=== PATIENT | female | born 1965 | race Caucasian/White ===

== ENCOUNTER 2022-10-17 08:04 | Emergency (ER) | payer OTHER, MEDICAID ==
[~2022-10-17] VITALS: Ht 157.5 cm; Wt 63.5 kg
--- NOTE | 2022-10-17 08:41 | NUR ---
57YO F BIB [facility], C/O LT ELBOW BRUISE AND SWELLING NOTED THIS AM, PT HAS HX OF FALLS AND BRUISES, NEW BOARD AND CARE X 2MTHS. PT NON VERBAL. SAFETY MAINTAINED. HX: SEIZURES, AUTISM NKA
--- NOTE | 2022-10-17 08:43 | NUR ---
PT AMBULATED TO BED 8 W/ESTIMATOR JEWELRY
--- NOTE | 2022-10-17 09:05 | NUR ---
SIN AT BEDSIDE FOR EVALUATION
[2022-10-17] MEDS ORDERED: LORazepam 2 MG/ML VIAL IM ONE (09:10)
[2022-10-17] MEDS ORDERED: HALOPERIDOL IM 5 MG/ML VIAL IM ONE (09:10)
--- NOTE | 2022-10-17 10:08 | NUR ---
xray at bedside
[2022-10-17] MEDS ORDERED: ACET-2619 PO ×2 (11:23→11:25)
[2022-10-17] MEDS ORDERED: IBUP-2213 PO ×2 (11:23→11:25)
--- NOTE | 2022-10-17 11:33 | NUR ---
The patient's care was reviewed and supervised by [facility] ED, RN.
== END 2022-10-17 11:36 | disposition home or self-care (01) ==
LOC: MED 08:04
DX: S50.02XA Contusion of left elbow, initial encounter (principal); S60.221A Contusion of right hand, initial encounter; S60.222A Contusion of left hand, initial encounter; F84.0 Autistic disorder; F32.9 Major depressive disorder, single episode, unspecified; G40.909 Epilepsy, unspecified, not intractable, without status epilepticus; J45.909 Unspecified asthma, uncomplicated; F79 Unspecified intellectual disabilities; Z79.899 Other long term (current) drug therapy; X58.XXXA Exposure to other specified factors, initial encounter; Y93.89 Activity, other specified; Y92.89 Other specified places as the place of occurrence of the external cause; Y99.8 Other external cause status
CPT/HCPCS: 73080; 96372; 99284; J1630; J2060

== ENCOUNTER 2022-10-26 14:53 | Inpatient (IN) | payer OTHER, MEDICAID ==
[~2022-10-26] VITALS: Ht 157.5 cm; Wt 74.8 kg
[~2022-10-26 14:53] MED LIST: ACET-2619 PO; IBUP-2213 PO
[2022-10-26 14:55] VITALS: BP 140/80
[2022-10-26] MEDS ORDERED: NACL 0.9% 1,000 ML IV ONE (15:10)
[2022-10-26 16:02] LABS: BASOPHILS # (AUTO) 0.1 K/uL (0.00-0.22); BASOPHILS % (AUTO) 0.6 % (0.0-2.0); EOSINOPHILS # (AUTO) 0.1 K/uL (0-0.4); EOSINOPHILS % (AUTO) 0.7 % (0.0-4.0); HEMATOCRIT 36.7 % (36-48); HEMOGLOBIN 12.1 g/dL (12.0-16.0); LYMPHOCYTES # (AUTO) 2.6 K/uL (2.5-16.5); LYMPHOCYTES % (AUTO) 22.2 % (20.5-51.1); MEAN CORPUSCULAR HEMOGLOBIN 31 pg (27-31); MEAN CORPUSCULAR HGB CONC 33 g/dL (33-37); MEAN CORPUSCULAR VOLUME 94.1 fL (80-94); MONOCYTES # (AUTO) 1.5 K/uL (0.8-1.0); MONOCYTES % (AUTO) 12.7 % (1.7-9.3); NEUTROPHILS # (AUTO) 7.5 K/uL (1.8-7.7); NEUTROPHILS % (AUTO) 63.8 % (42.2-75.2); PLATELET COUNT (AUTO) 271 K/uL (140-450); WHITE BLOOD COUNT (AUTO) 11.7 K/uL (4.8-10.8)
--- NOTE | 2022-10-26 16:14 | NUR ---
BIBA FROM [facility] FOR GENERALIZED WEAKNESS.
[2022-10-26 16:20] LABS: ANION GAP 11.2 (8-16); CREATININE 0.6 mg/dL (0.6-1.3); POTASSIUM 4.2 mmol/L (3.5-5.1); TOTAL BILIRUBIN 0.3 mg/dL (0.0-1.0)
[2022-10-26 19:03] LABS: APPEARANCE,URINE CLEAR (CLEAR); BILIRUBIN,URINE NEGATIVE (NEGATIVE); BLOOD, URINE NEGATIVE (NEGATIVE); COLOR,URINE YELLOW (YELLOW); LEUKOCYTE ESTERASE ,URINE TRACE (NEGATIVE); NITRITE, URINE POSITIVE (NEGATIVE); UGLUCOSE NEGATIVE (NEGATIVE)
[2022-10-26 19:12] LABS: RBC,URINE 0-5 /HPF (0-5); URINE AMORPHOUS URATE 3+ /HPF (None Seen)
--- NOTE | 2022-10-26 19:35 | NUR ---
Patient report received from Morgan UMAÑA. Patient comfortable and safe in bed. Patient being monitored at this time, connected to monitor. VS stable at this time.
[2022-10-26] MEDS ORDERED: cefTRIAXone 1,000 MG VIAL ONE (19:50)
[2022-10-26] MEDS ORDERED: DIVA125E1 (21:30)
[2022-10-26] MEDS ORDERED: FURO-572 PO (21:30)
[2022-10-26] MEDS ORDERED: [UNRECOGNIZED DRUG - CODE] PO (21:30)
[2022-10-26] MEDS ORDERED: TRAZ-343 PO (21:30)
[2022-10-26] MEDS ORDERED: SIMV-371 PO (21:30)
[2022-10-26] MEDS ORDERED: POTA8CER PO (21:30)
[2022-10-26] MEDS ORDERED: MAGN400T7 PO (21:30)
[2022-10-26] MEDS ORDERED: LEVE750T25 PO (21:30)
[2022-10-26] MEDS ORDERED: CHOL500040 PO (21:30)
[2022-10-26] MEDS ORDERED: FOS70 PO (21:30)
[2022-10-26] MEDS ORDERED: BUSP15TA4 PO (21:30)
[2022-10-26] MEDS ORDERED: FERR325E14 PO (21:30)
[2022-10-26] MEDS ORDERED: [UNRECOGNIZED DRUG - CODE] PO (21:30)
[2022-10-26] MEDS ORDERED: CALC-575 PO (21:30)
--- NOTE | 2022-10-26 22:11 | NUR ---
Patient will be admitted to care of Dr. Griffin. Admited to Telemetry. Will go to room 110A. Belongings list completed. Report to Gisell UMAÑA.
--- NOTE | 2022-10-26 22:15 | NUR ---
ADMITTED PATIENT TO [facility]ST UNIT VIA GURNEY FROM ER AWAKE NON VERBAL ON ROOM AIR. NO S/S OF RESPIRATORY DISTRESS. TRANSFERRED TO BED SAFELY. ALL SAFETY PRECAUTIONS ARE IN PLACE. CALL LIGHT WITHIN REACH. NASAL SWAB DONE FOR MRSA SCREENING. IV SITE TO RIGHT THUMB.
[2022-10-27] MEDS ORDERED: LORazepam 2 MG/ML VIAL IVP SCH (01:55)
[2022-10-27] MEDS ORDERED: LORazepam 2 MG/ML VIAL ONE (01:57)
--- NOTE | 2022-10-27 02:00 | NUR ---
PATIENT PULLED OUT IV. STARTED A NEW IV TO RIGHT FOREARM WITH GOOD BLOOD RETURN. TOLERATED WELL.
[2022-10-27 04:00] VITALS: BP 122/67
[2022-10-27 07:04] LABS: BASOPHILS % (AUTO) 0.3 % (0.0-2.0); EOSINOPHILS # (AUTO) 0.1 K/uL (0-0.4); EOSINOPHILS % (AUTO) 1.6 % (0.0-4.0); HEMATOCRIT 32.8 % (36-48); HEMOGLOBIN 10.9 g/dL (12.0-16.0); LYMPHOCYTES % (AUTO) 27.6 % (20.5-51.1); MEAN CORPUSCULAR HEMOGLOBIN 31 pg (27-31); MEAN CORPUSCULAR HGB CONC 33 g/dL (33-37); MEAN CORPUSCULAR VOLUME 93.9 fL (80-94); MONOCYTES # (AUTO) 1.1 K/uL (0.8-1.0); NEUTROPHILS % (AUTO) 55.5 % (42.2-75.2); PLATELET COUNT (AUTO) 235 K/uL (140-450); RED CELL DISTRIBUTION WIDTH 14.5 % (11.6-13.7); WHITE BLOOD COUNT (AUTO) 7.3 K/uL (4.8-10.8)
--- NOTE | 2022-10-27 07:10 | NUR ---
RECEIVED REPORT FROM NIGHT NURSE DAHIANA FOR CONTINUITY OF CARE. ALERT WITH CONFUSION. RESP. EVEN AND UNLABORED. IV SITE INTACT. ON SALINE LOCK. NOT IN ANY DISTRESS NOTED. CALL LIGHT KEPT WITHIN REACH. PT WILL MONITOR CLOSELY.
[2022-10-27 07:11] LABS: ANION GAP 11.1 (8-16); CARBON DIOXIDE 26.7 mmol/L (21-32); CREATININE 0.5 mg/dL (0.6-1.3); POTASSIUM 3.8 mmol/L (3.5-5.1)
--- NOTE | 2022-10-27 07:14 | NUR ---
GAVE BEDSIDE REPORT TO AM NURSE SIOBHAN FOR CONTINUITY OF CARE.
[2022-10-27] MEDS ORDERED: ALENDRONATE SODIUM 70 MG TAB PO SCH (07:20)
[2022-10-27] MEDS ORDERED: OLANZapine 5 MG ODT PO ONE (07:20)
[2022-10-27] MEDS ORDERED: MAG SULF 2000 MG/WATER PREMIX 50 ML IV PRN (07:30)
[2022-10-27] MEDS ORDERED: HYDROcodone/APAP 7.5/325 MG 1 TAB PO PRN (07:30)
[2022-10-27] MEDS ORDERED: ACETAMINOPHEN 325 MG TAB PO PRN (07:30)
[2022-10-27] MEDS ORDERED: POTASSIUM CHLORIDE 10 MEQ TABER PO PRN (07:30)
[2022-10-27] MEDS ORDERED: ONDANSETRON 4 MG/2 ML VIAL IVP PRN (07:30)
[2022-10-27 08:00] VITALS: BP 145/96
--- NOTE | 2022-10-27 08:05 | NUR ---
ATTEMPTED PERFORMING EKG ON PATIENT, PATIENT NOT COMPLIANT. RN NOTIFIED.
[2022-10-27 08:16] LABS: PROTHROMBIN TIME 10.5 secs (10.8-13.4)
[2022-10-27] MEDS: NACL 0.9% 1,000 ML IV SCH (08:41)
--- NOTE | 2022-10-27 08:49 | NUR ---
PATIENT HAS BEEN SCREENED AND CATEGORIZED LOW NUTRITION RISK. PATIENT WILL BE SEEN WITHIN 7 DAYS OF ADMISSION. 11/02/[address]
[2022-10-27] MEDS ORDERED: NON-FORMULARY ITEM (Levetiracetam* (Keppra Xr*) 1 TAB) PO SCH (09:00)
[2022-10-27] MEDS ORDERED: DOCUSATE SODIUM 250 MG GELCAP PO SCH (09:00)
[2022-10-27 09:33] LABS: AMYLASE 28 U/L (25-115); FREE T4 (FREE THYROXINE) 0.95 ng/dL (0.76-1.46); HDL CHOLESTEROL 65 mg/dL (40-60); LDL (CALC) 58 mg/dL (60-100); LIPASE 29 U/L (73-393); MAGNESIUM 1.9 mg/dL (1.8-2.4); PHOSPHORUS 3.8 mg/dL (2.5-4.9); THYROID STIMULATING HORMONE 4.06 uIU/mL (0.34-3.74); TRIGLYCERIDES 43 mg/dL (30-150)
[2022-10-27] MEDS: CALCIUM CARBONATE 500 MG TAB PO SCH (09:44)
[2022-10-27] MEDS: VITAMIN D 400 IU TAB PO SCH ×2 (09:47→21:03)
[2022-10-27] MEDS: MAGNESIUM OXIDE 400 MG TAB PO SCH (09:48)
[2022-10-27] MEDS: FERROUS SULFATE 325 MG TABEC PO SCH (09:48)
[2022-10-27] MEDS: FUROSEMIDE 20 MG TAB PO SCH (09:48)
[2022-10-27] MEDS: DOCUSATE SODIUM 100 MG GELCAP PO SCH ×2 (09:49→21:21)
--- NOTE | 2022-10-27 09:49 | NUR ---
SCHEDULED PO MEDICATIONS GIVEN. TOLERATED WELL.
[2022-10-27] MEDS: busPIRone 5 MG TAB PO SCH (09:57)
[2022-10-27] MEDS: DIVALPROEX SPRINKLES 125 MG CAPDR PO SCH ×4 (09:57→21:05)
[2022-10-27] MEDS: PANTOPRAZOLE 40 MG INJ VIAL IVP SCH (10:22)
--- NOTE | 2022-10-27 10:22 | NUR ---
PROTONIX IVP WAS GIVEN BY PARAMJIT UMAÑA. TOLERATED WELL.
[2022-10-27 12:00] VITALS: BP 102/81
[2022-10-27] MEDS: KEPPRA 750 MG PO SCH ×2 (14:30→21:20)
[2022-10-27 16:00] VITALS: BP 130/86
--- NOTE | 2022-10-27 18:17 | NUR ---
MADE CLARIFICATION ORDERS TO DR. GARCIA, REGARDING HOME MEDICATIONS: OLANZAPINE 15 MG PO BID, DIVALPROEX 125 MG CAPSULES TAKE 10 CAPS (1250MG). PER DR. GARCIA CONTINUE HOME MEDICATIONS. ORDER NOTED AND CARRIED OUT. CALLED PHARMACY SPOKE TO MARIANNA AND MADE AWARE.
--- NOTE | 2022-10-27 19:10 | NUR ---
REPORT GIVEN TO NIGHT NURSE DAHIANA FOR CONTINUITY OF CARE. REMAINS STABLE.
[2022-10-27 20:00] VITALS: BP 133/92
[2022-10-27] MEDS: SIMVASTATIN 10 MG TAB PO SCH (21:03)
[2022-10-27] MEDS: OLANZapine 5 MG ODT PO SCH (21:03)
--- NOTE | 2022-10-27 21:03 | NUR ---
ALL 2100 SCHEDULED MEDICATIONS ADMINISTERED. TOLERATED WELL. PATIENT AWAKE NO SOB NOTED. AGITATED. IVF INFUSING WELL. SAFETY MEASURES ARE IN PLACE. CALL LIGHT IN REACH.
[2022-10-27] MEDS: traZODone 50 MG TAB PO SCH (21:20)
[2022-10-28] VITALS: BP 124/64
[2022-10-28] MEDS: LORazepam 2 MG/ML VIAL IVP PRN ×2 (00:41→23:03)
[2022-10-28] MEDS: NACL 0.9% 1,000 ML IV SCH ×2 (03:30→09:35)
[2022-10-28 04:00] VITALS: BP 128/90
--- NOTE | 2022-10-28 07:15 | NUR ---
RECEIVED REPORT FROM NIGHT NURSE DAHIANA FOR CONTINUITY OF CARE. ALERT WITH CONFUSION. SKIN DRY AND WARM TO TOUCH. IVF INFUSING WELL. NOT IN ANY DISTRESS NOTED. CALL LIGHT KEPT WITHIN REACH. PT WILL MONITOR CLOSELY.
[2022-10-28 07:19] LABS: MAGNESIUM 2.2 mg/dL (1.8-2.4); PHOSPHORUS 4.1 mg/dL (2.5-4.9)
--- NOTE | 2022-10-28 07:21 | NUR ---
ENDORSED PATIENT TO DAY SHIFT NURSE FOR CONTINUITY OF CARE.
[2022-10-28 07:30] LABS: BASOPHILS % (AUTO) 0.7 % (0.0-2.0); EOSINOPHILS # (AUTO) 0.1 K/uL (0-0.4); EOSINOPHILS % (AUTO) 2.2 % (0.0-4.0); HEMOGLOBIN 11.3 g/dL (12.0-16.0); LYMPHOCYTES # (AUTO) 2.2 K/uL (2.5-16.5); LYMPHOCYTES % (AUTO) 38.7 % (20.5-51.1); MEAN CORPUSCULAR HEMOGLOBIN 31 pg (27-31); MEAN CORPUSCULAR HGB CONC 33 g/dL (33-37); MEAN CORPUSCULAR VOLUME 93.4 fL (80-94); MONOCYTES % (AUTO) 17.2 % (1.7-9.3); NEUTROPHILS # (AUTO) 2.3 K/uL (1.8-7.7); NEUTROPHILS % (AUTO) 41.2 % (42.2-75.2); PLATELET COUNT (AUTO) 247 K/uL (140-450); RED BLOOD CELL COUNT(AUTO) 3.64 MIL/uL (4.20-5.40); RED CELL DISTRIBUTION WIDTH 14.6 % (11.6-13.7); WHITE BLOOD COUNT (AUTO) 5.7 K/uL (4.8-10.8)
[2022-10-28 07:31] LABS: CARBON DIOXIDE 27.2 mmol/L (21-32); CREATININE 0.5 mg/dL (0.6-1.3); POTASSIUM 4.2 mmol/L (3.5-5.1)
[2022-10-28 08:00] VITALS: BP 141/79
[2022-10-28] MEDS: MAGNESIUM OXIDE 400 MG TAB PO SCH (08:57)
[2022-10-28] MEDS: KEPPRA 750 MG PO SCH ×2 (08:57→21:30)
[2022-10-28] MEDS: PANTOPRAZOLE 40 MG INJ VIAL IVP SCH (09:00)
[2022-10-28] MEDS: busPIRone 5 MG TAB PO SCH (09:02)
[2022-10-28] MEDS: DOCUSATE SODIUM 100 MG GELCAP PO SCH ×2 (09:02→21:27)
--- NOTE | 2022-10-28 09:02 | NUR ---
SCHEDULED MEDICATIONS GIVEN. TOLERATED WELL.
[2022-10-28] MEDS: VITAMIN D 400 IU TAB PO SCH ×2 (09:03→21:26)
[2022-10-28] MEDS: CALCIUM CARBONATE 500 MG TAB PO SCH (09:03)
[2022-10-28] MEDS: OLANZapine 5 MG ODT PO SCH ×2 (09:04→21:26)
[2022-10-28] MEDS: FUROSEMIDE 20 MG TAB PO SCH (09:04)
[2022-10-28] MEDS: FERROUS SULFATE 325 MG TABEC PO SCH (09:04)
[2022-10-28] MEDS: DIVALPROEX SPRINKLES 125 MG CAPDR PO SCH ×2 (09:28→21:26)
--- NOTE | 2022-10-28 10:14 | NUR ---
PROTONIX IVP WAS GIVEN BY TRINITY UMAÑA. TOLERATED WELL.
--- NOTE | 2022-10-28 10:32 | NUR ---
PRN NORCO WAS GIVEN FOR PAIN MANAGEMENT. TOLERATED WELL.
[2022-10-28 12:00] VITALS: BP 142/62
--- NOTE | 2022-10-28 13:19 | NUR ---
PRN TYLENOL WAS GIVEN FOR HEADACHE. TOLERATED WELL.
--- NOTE | 2022-10-28 14:50 | NUR ---
DC [age] YRS OLD FEMALE PATIENT WAS ADMITTED FROM [facility]. PATIENT HAS A HX OF INTELLECTUAL DISABILITY , ASTHMA, AND DEPRESSION. CXR NORMAL , HEAD CT NEGATIVE. RAPID COVID TEST NEGATIVE. ADMINISTERED IVF, IV ABX ROCEPHIN AND CONTINUED HOME MEDS. DC PLAN TO RETURN TO [facility] WHEN STABLE. CM TO FOLLOW
--- NOTE | 2022-10-28 19:05 | NUR ---
BEDSIDE REPORT GIVEN TO NIGHT NURSE DAHIANA FOR CONTINUITY OF CARE. REMAINS STABLE.
--- NOTE | 2022-10-28 19:10 | NUR ---
RECEIVED PATIENT RESTING ON ROOM AIR IN NO ACUTE DISTRESS. IVF RUNNING WELL. BED WHEELS LOCKED IN LOW POSITION. CALL LIGHT IN REACH.
[2022-10-28] MEDS ORDERED: DIVALPROEX SPRINKLES 125 MG CAPDR ONE ×2 (21:10→21:21)
[2022-10-28] MEDS: traZODone 50 MG TAB PO SCH (21:27)
[2022-10-28] MEDS: SIMVASTATIN 10 MG TAB PO SCH (21:29)
--- NOTE | 2022-10-28 23:03 | NUR ---
PATIENT VERY AGITATED, SCREAMING,PULLING OUT IV AND TRYING TO GET OUT OF BED, MEDICATED ORDERED. PULLED UP AND MADE COMFORTABLE IN BED.
--- NOTE | 2022-10-29 00:36 | NUR ---
PATIENT CLEANED AND MADE COMFORTABLE IN BED. CURRENTLY CALM AND RESTING IN BED.
--- NOTE | 2022-10-29 00:40 | NUR ---
PATIENT PULLED OUT IV. STARTED A NEW IV TO LEFT FOREARM WITH GOOD RETURN OF BLOOD.
[2022-10-29 04:00] VITALS: BP 138/70
[2022-10-29] MEDS: NACL 0.9% 1,000 ML IV SCH (06:11)
[2022-10-29 06:52] LABS: ANION GAP 10.7 (8-16); CARBON DIOXIDE 27.5 mmol/L (21-32); CREATININE 0.5 mg/dL (0.6-1.3); MAGNESIUM 2.2 mg/dL (1.8-2.4); PHOSPHORUS 4.4 mg/dL (2.5-4.9); POTASSIUM 4.2 mmol/L (3.5-5.1)
[2022-10-29 06:54] LABS: BASOPHILS % (AUTO) 0.8 % (0.0-2.0); EOSINOPHILS # (AUTO) 0.2 K/uL (0-0.4); EOSINOPHILS % (AUTO) 4.2 % (0.0-4.0); HEMATOCRIT 32.2 % (36-48); LYMPHOCYTES # (AUTO) 2.5 K/uL (2.5-16.5); LYMPHOCYTES % (AUTO) 44.3 % (20.5-51.1); MEAN CORPUSCULAR HEMOGLOBIN 32 pg (27-31); MEAN CORPUSCULAR HGB CONC 34 g/dL (33-37); MEAN CORPUSCULAR VOLUME 92.5 fL (80-94); MONOCYTES # (AUTO) 0.8 K/uL (0.8-1.0); MONOCYTES % (AUTO) 15.2 % (1.7-9.3); NEUTROPHILS % (AUTO) 35.5 % (42.2-75.2); PLATELET COUNT (AUTO) 237 K/uL (140-450); RED BLOOD CELL COUNT(AUTO) 3.48 MIL/uL (4.20-5.40); RED CELL DISTRIBUTION WIDTH 14.4 % (11.6-13.7); WHITE BLOOD COUNT (AUTO) 5.6 K/uL (4.8-10.8)
--- NOTE | 2022-10-29 07:10 | NUR ---
RECEIVED REPORT FROM NIGHT NURSE DAHIANA FOR CONTINUITY OF CARE. ALERT WITH CONFUSION. RESP. EVEN AND UNLABORED. IV SITE INTACT. IVF INFUSING WELL. NOT IN ANY DISTRESS NOTED. CALL LIGHT KEPT WITHIN REACH. PT WILL MONITOR CLOSELY.
[2022-10-29 08:00] VITALS: BP 153/89
--- NOTE | 2022-10-29 08:00 | NUR ---
Patient's Plan of Care was discussed and reviewed with BOB[employer] CLEANER HAND: CHANDAN
[2022-10-29] MEDS: PANTOPRAZOLE 40 MG INJ VIAL IVP SCH (09:00)
[2022-10-29] MEDS: MAGNESIUM OXIDE 400 MG TAB PO SCH (09:40)
[2022-10-29] MEDS: FUROSEMIDE 20 MG TAB PO SCH (09:40)
[2022-10-29] MEDS: KEPPRA 750 MG PO SCH (09:40)
[2022-10-29] MEDS: OLANZapine 5 MG ODT PO SCH (09:40)
[2022-10-29] MEDS: VITAMIN D 400 IU TAB PO SCH (09:41)
[2022-10-29] MEDS: CALCIUM CARBONATE 500 MG TAB PO SCH (09:41)
[2022-10-29] MEDS: FERROUS SULFATE 325 MG TABEC PO SCH (09:41)
[2022-10-29] MEDS: DOCUSATE SODIUM 100 MG GELCAP PO SCH (09:41)
[2022-10-29] MEDS: busPIRone 5 MG TAB PO SCH (09:41)
--- NOTE | 2022-10-29 09:41 | NUR ---
SCHEDULED MEDICATIONS GIVEN. TOLERATED WELL.
[2022-10-29] MEDS: DIVALPROEX SPRINKLES 125 MG CAPDR PO SCH (09:55)
[2022-10-29] MEDS ORDERED: CEPH250C16 PO (10:21)
--- NOTE | 2022-10-29 10:22 | NUR ---
SEEN BY DR. GONZALEZ.
--- NOTE | 2022-10-29 11:47 | NUR ---
PROTONIX IVP WAS GIVEN BY ROHITH UMAÑA. TOLERATED WELL.
--- NOTE | 2022-10-29 13:35 | NUR ---
PT LEFT. DISCHARGE BACK TO [facility]. TRANSPORTED BY PRIVATE VEHICLE. ACCOMPANIED BY MAHNAZ PER WHEELCHAIR. ALERT AND ORIENTED WITH CONFUSION. RESP. EVEN AND UNLABORED. SKIN INTACT. ID BAND AND ID REMOVED. DISCHARGED PAPERWORK DISCUSS AND SIGNED BY MAHNAZ. NO C/O PAIN OR DISCOMFORT. REMAINS STABLE.
== END 2022-10-29 13:32 | disposition home or self-care (01) | DRG 689 ==
LOC: MED 14:53 → MTU 20:13
DX: N39.0 Urinary tract infection, site not specified (principal); G93.41 Metabolic encephalopathy; E44.0 Moderate protein-calorie malnutrition; F84.0 Autistic disorder; G40.909 Epilepsy, unspecified, not intractable, without status epilepticus; K59.00 Constipation, unspecified; D50.9 Iron deficiency anemia, unspecified; Z20.822 Contact with and (suspected) exposure to COVID-19; E78.5 Hyperlipidemia, unspecified; G47.00 Insomnia, unspecified; F39 Unspecified mood [affective] disorder; F79 Unspecified intellectual disabilities; J45.909 Unspecified asthma, uncomplicated; Z68.30 Body mass index [BMI] 30.0-30.9, adult; F32.A Depression, unspecified; I50.9 Heart failure, unspecified
CPT/HCPCS: 36415; 70450; 71045; 80048; 80053; 81001; 82140; 82150; 83036; 83690; 83735; 83880; 84100; 84439; 84443; 84484; 85025; 85610; 85730; 87081; 87086; 96361; 96365; 99285; C9113; J0696; J1644; J2060; J7060; Q0092

== ENCOUNTER 2023-01-27 04:35 | Emergency (ER) | payer OTHER, MEDICAID ==
[~2023-01-27] VITALS: Ht 157.5 cm; Wt 63.5 kg
[~2023-01-27 04:35] MED LIST changes: +BUSP15TA4 PO; +CALC-575 PO; +CEPH250C16 PO; +CHOL500040 PO; +DIVA125E1; +FERR325E14 PO; +FOS70 PO; +FURO-572 PO; +LEVE750T25 PO; +MAGN400T7 PO; +POTA8CER PO; +SIMV-371 PO; +TRAZ-343 PO; +[UNRECOGNIZED DRUG - CODE] PO; +[UNRECOGNIZED DRUG - CODE] PO
[2023-01-27 04:50] VITALS: BP 150/89; PULSE 129; RESP 20; TEMP 97.3; O2SAT 98
[2023-01-27] MEDS ORDERED: LORazepam 2 MG/ML VIAL IM/IVP STA (05:09)
[2023-01-27] MEDS ORDERED: HALOPERIDOL IM 5 MG/ML VIAL IM ONE ×2 (05:10→08:05)
[2023-01-27] MEDS ORDERED: ZIPRASIDONE MESYLATE 20 MG/ML VIAL IM ONE (06:25)
[2023-01-27] MEDS ORDERED: OLANZapine 10 MG VIAL IM ONE (06:40)
[2023-01-27] MEDS ORDERED: MIDAZOLAM 2 MG/2 ML VIAL IM ONE (08:05)
[2023-01-27] MEDS ORDERED: LIDOCAINE/EPI MPF 1%1:200000 30 ML VIAL INJ ONE (09:00)
[2023-01-27] MEDS ORDERED: LIDOCAINE/EPI 2% 1:100000 20 ML VIAL INJ ONE (09:00)
[2023-01-27] MEDS ORDERED: BACITRACIN OINT 500 UNITS/GM PKT TP ONE (09:45)
[2023-01-27 10:36] VITALS: PULSE 129
[2023-01-27 10:37] VITALS: RESP 14; TEMP 97.1; O2SAT 100
== END 2023-01-27 10:40 | disposition home or self-care (01) ==
LOC: MED 04:35
DX: S01.81XA Laceration without foreign body of other part of head, initial encounter (principal); J45.909 Unspecified asthma, uncomplicated; W01.198A Fall on same level from slipping, tripping and stumbling with subsequent striking against other object, initial encounter; Y93.89 Activity, other specified; Y92.89 Other specified places as the place of occurrence of the external cause; Y99.8 Other external cause status
CPT/HCPCS: 12014; 70450; 70486; 72125; 90471; 90715; 96372; 99285; J1630; J2001; J2060; J2250; J3490; 12013

== ENCOUNTER 2023-02-03 10:32 | Emergency (ER) | payer OTHER, MEDICAID ==
[~2023-02-03] VITALS: Ht 154.9 cm; Wt 65.8 kg
[2023-02-03 10:51] VITALS: BP 165/109; PULSE 115; RESP 20; TEMP 97.8; O2SAT 95
[2023-02-03] MEDS ORDERED: BACITRACIN OINT 500 UNITS/GM PKT TP ONE ×2 (12:40→12:41)
[2023-02-03] MEDS ORDERED: BACI-418 TP (12:41)
[2023-02-03 12:52] VITALS: BP 165/109; PULSE 115; RESP 20; TEMP 97.8; O2SAT 95
== END 2023-02-03 12:52 | disposition home or self-care (01) ==
LOC: MED 10:32
DX: S01.111D Laceration without foreign body of right eyelid and periocular area, subsequent encounter (principal); J45.909 Unspecified asthma, uncomplicated; Z48.02 Encounter for removal of sutures; Z79.899 Other long term (current) drug therapy; X58.XXXD Exposure to other specified factors, subsequent encounter
CPT/HCPCS: 99282

== ENCOUNTER 2023-02-12 13:03 | Inpatient (IN) | payer OTHER, MEDICAID ==
[~2023-02-12] VITALS: Ht 162.6 cm; Wt 81.6 kg
[2023-02-12] MEDS: DEXT 5% / NACL 0.9% 500 ML IV SCH (09:24)
[~2023-02-12 13:03] MED LIST changes: +BACI-418 TP
[2023-02-12 13:06] VITALS: BP 104/60; PULSE 104; RESP 18; O2SAT 98
[2023-02-12 13:33] VITALS: O2SAT 98
[2023-02-12 15:33] VITALS: O2SAT 98
[2023-02-12 16:44] LABS: BASOPHILS # (AUTO) 0.1 K/uL (0.00-0.22); BASOPHILS % (AUTO) 0.8 % (0.0-2.0); EOSINOPHILS % (AUTO) 0.4 % (0.0-4.0); HEMATOCRIT 37.7 % (36-48); HEMOGLOBIN 12.6 g/dL (12.0-16.0); LYMPHOCYTES # (AUTO) 2.2 K/uL (2.5-16.5); LYMPHOCYTES % (AUTO) 18.9 % (20.5-51.1); MEAN CORPUSCULAR HEMOGLOBIN 32 pg (27-31); MEAN CORPUSCULAR HGB CONC 33 g/dL (33-37); MEAN CORPUSCULAR VOLUME 94.6 fL (80-94); MONOCYTES # (AUTO) 1.6 K/uL (0.8-1.0); MONOCYTES % (AUTO) 14.4 % (1.7-9.3); NEUTROPHILS # (AUTO) 7.4 K/uL (1.8-7.7); NEUTROPHILS % (AUTO) 65.5 % (42.2-75.2); PLATELET COUNT (AUTO) 169 K/uL (140-450); RED BLOOD CELL COUNT(AUTO) 3.99 MIL/uL (4.20-5.40); RED CELL DISTRIBUTION WIDTH 14.8 % (11.6-13.7); WHITE BLOOD COUNT (AUTO) 11.4 K/uL (4.8-10.8)
[2023-02-12 17:10] LABS: ANION GAP 12.5 (8-16); CARBON DIOXIDE 23.7 mmol/L (21-32); CREATININE 0.6 mg/dL (0.6-1.3); POTASSIUM 4.2 mmol/L (3.5-5.1)
[2023-02-12 17:33] VITALS: O2SAT 98
[2023-02-12] MEDS ORDERED: CLON0.5T PO (18:31)
[2023-02-12] MEDS ORDERED: QUET200T PO (18:31)
[2023-02-12] MEDS ORDERED: MULT-2253 PO (18:31)
[2023-02-12] MEDS ORDERED: ZOLPIDEM 10 MG TAB PO PRN (19:10)
[2023-02-12] MEDS ORDERED: ONDANSETRON 4 MG/2 ML VIAL IVP PRN (19:10)
[2023-02-12] MEDS ORDERED: POTASSIUM CHLORIDE 10 MEQ TABER PO PRN (19:10)
[2023-02-12] MEDS ORDERED: MAG SULF 2000 MG/WATER PREMIX 50 ML IV PRN (19:10)
[2023-02-12] MEDS ORDERED: MORPHINE SULFATE 2 MG/ML SYR IVP PRN (19:10)
[2023-02-12] MEDS ORDERED: DOCUSATE SODIUM 100 MG GELCAP PO PRN (19:10)
[2023-02-12] MEDS ORDERED: ACETAMINOPHEN 325 MG TAB PO PRN (19:10)
[2023-02-12 19:39] VITALS: O2SAT 97
[2023-02-12 21:05] VITALS: PULSE 97; RESP 17; O2SAT 96
[2023-02-12] MEDS: LORazepam 2 MG/ML VIAL IVP PRN (21:25)
[2023-02-13] VITALS: BP 131/96; PULSE 97; RESP 17; TEMP 97.2; O2SAT 96
[2023-02-13] MEDS: DEXT 5% / NACL 0.9% 500 ML IV SCH (01:32)
[2023-02-13 04:00] VITALS: BP 123/83; PULSE 98; RESP 16; TEMP 97.5; O2SAT 100
[2023-02-13] MEDS: LORazepam 2 MG/ML VIAL IVP PRN ×3 (04:48→22:58)
[2023-02-13 06:06] LABS: BASOPHILS % (AUTO) 0.2 % (0.0-2.0); EOSINOPHILS % (AUTO) 0.4 % (0.0-4.0); HEMATOCRIT 37.2 % (36-48); HEMOGLOBIN 12.3 g/dL (12.0-16.0); LYMPHOCYTES # (AUTO) 2.3 K/uL (2.5-16.5); MEAN CORPUSCULAR HEMOGLOBIN 31 pg (27-31); MEAN CORPUSCULAR HGB CONC 33 g/dL (33-37); MONOCYTES # (AUTO) 1.6 K/uL (0.8-1.0); MONOCYTES % (AUTO) 17.3 % (1.7-9.3); NEUTROPHILS # (AUTO) 5.1 K/uL (1.8-7.7); NEUTROPHILS % (AUTO) 56.1 % (42.2-75.2); PLATELET COUNT (AUTO) 190 K/uL (140-450); RED BLOOD CELL COUNT(AUTO) 3.95 MIL/uL (4.20-5.40); RED CELL DISTRIBUTION WIDTH 14.8 % (11.6-13.7); WHITE BLOOD COUNT (AUTO) 9.1 K/uL (4.8-10.8)
[2023-02-13 06:25] LABS: ANION GAP 13.5 (8-16); CALCIUM 8.6 mg/dL (8.5-10.1); CARBON DIOXIDE 22.1 mmol/L (21-32); CREATININE 0.6 mg/dL (0.6-1.3); POTASSIUM 3.6 mmol/L (3.5-5.1)
[2023-02-13 08:00] VITALS: PULSE 86; RESP 18; O2SAT 94; O2SAT 99
[2023-02-13] MEDS ORDERED: diphenhydrAMINE 50 MG/ML VIAL ONE (08:51)
[2023-02-13] MEDS ORDERED: fentaNYL citrate 0.05 MG/ML VIAL ONE (08:51)
[2023-02-13] MEDS ORDERED: MIDAZOLAM 5 MG/5 ML VIAL ONE (08:52)
[2023-02-13] MEDS ORDERED: NITROGLYCERIN 0.4 MG TAB SL SCH (11:30)
[2023-02-13] MEDS: levETIRAcetam 500 MG in NACL 0.9% 100 ML IV SCH ×2 (12:35→20:25)
[2023-02-13] MEDS: DIVALPROEX SPRINKLES 125 MG CAPDR PO SCH (12:36)
[2023-02-13 16:00] VITALS: BP 125/73; PULSE 104; RESP 18; TEMP 97.4; O2SAT 94
[2023-02-13 19:30] VITALS: O2SAT 94
[2023-02-13 20:00] VITALS: BP 155/98; PULSE 113; RESP 18; TEMP 98.5; O2SAT 94; O2SAT 95
[2023-02-14] MEDS ORDERED: BUS5 PO (06:09)
[2023-02-14 06:32] LABS: ANION GAP 12.6 (8-16); CARBON DIOXIDE 22.5 mmol/L (21-32); CREATININE 0.6 mg/dL (0.6-1.3); POTASSIUM 4.1 mmol/L (3.5-5.1)
[2023-02-14 06:49] LABS: BASOPHILS % (AUTO) 0.4 % (0.0-2.0); EOSINOPHILS # (AUTO) 0.1 K/uL (0-0.4); EOSINOPHILS % (AUTO) 1.6 % (0.0-4.0); HEMATOCRIT 39.1 % (36-48); HEMOGLOBIN 13.1 g/dL (12.0-16.0); LYMPHOCYTES # (AUTO) 2.7 K/uL (2.5-16.5); LYMPHOCYTES % (AUTO) 32.1 % (20.5-51.1); MEAN CORPUSCULAR HEMOGLOBIN 31 pg (27-31); MEAN CORPUSCULAR HGB CONC 33 g/dL (33-37); MEAN CORPUSCULAR VOLUME 94.1 fL (80-94); MONOCYTES # (AUTO) 1.7 K/uL (0.8-1.0); MONOCYTES % (AUTO) 20.7 % (1.7-9.3); NEUTROPHILS # (AUTO) 3.8 K/uL (1.8-7.7); NEUTROPHILS % (AUTO) 45.2 % (42.2-75.2); PLATELET COUNT (AUTO) 219 K/uL (140-450); RED BLOOD CELL COUNT(AUTO) 4.16 MIL/uL (4.20-5.40); RED CELL DISTRIBUTION WIDTH 14.7 % (11.6-13.7); WHITE BLOOD COUNT (AUTO) 8.4 K/uL (4.8-10.8)
[2023-02-14 08:00] VITALS: BP 151/83; PULSE 102; RESP 18; TEMP 96; O2SAT 94; O2SAT 95; O2SAT 99
[2023-02-14] MEDS: busPIRone 5 MG TAB PO SCH ×2 (10:13→20:18)
[2023-02-14] MEDS: DIVALPROEX SPRINKLES 125 MG CAPDR PO SCH (10:13)
[2023-02-14] MEDS: clonazePAM 0.5 MG TAB PO SCH ×2 (10:14→20:19)
[2023-02-14] MEDS: levETIRAcetam 500 MG in NACL 0.9% 100 ML IV SCH ×2 (10:23→20:17)
[2023-02-14 11:51] VITALS: O2SAT 94
[2023-02-14 16:00] VITALS: BP 109/73; PULSE 118; RESP 18; TEMP 97.4; O2SAT 99
[2023-02-14] MEDS: LORazepam 2 MG/ML VIAL IVP PRN (17:31)
[2023-02-14 20:00] VITALS: BP 106/69; PULSE 105; RESP 18; TEMP 97.8; O2SAT 95
[2023-02-14] MEDS ORDERED: QUEtiapine FUMARATE 100 MG TAB PO SCH (21:00)
[2023-02-14] MEDS ORDERED: traZODone 50 MG TAB PO SCH (21:00)
[2023-02-15 05:29] LABS: HEMOGLOBIN 12.7 g/dL (12.0-16.0); WHITE BLOOD COUNT (AUTO) 8.7 K/uL (4.8-10.8)
[2023-02-15 05:51] LABS: ANION GAP 11.1 (8-16); CALCIUM 9.2 mg/dL (8.5-10.1); CARBON DIOXIDE 25.1 mmol/L (21-32); CREATININE 0.6 mg/dL (0.6-1.3); POTASSIUM 4.2 mmol/L (3.5-5.1)
[2023-02-15 06:29] LABS: MEAN CORPUSCULAR HEMOGLOBIN 31 pg (27-31); MEAN CORPUSCULAR HGB CONC 33 g/dL (33-37); PLATELET COUNT (AUTO) 225 K/uL (140-450); RED BLOOD CELL COUNT(AUTO) 4.04 MIL/uL (4.20-5.40); RED CELL DISTRIBUTION WIDTH 15.1 % (11.6-13.7)
[2023-02-15 07:16] LABS: EOSINOPHILS % (MANUAL) 1 % (0-4)
[2023-02-15 07:17] LABS: LYMPHOCYTES % (MANUAL) 30 % (20-46)
[2023-02-15 07:18] LABS: MONOCYTES % (MANUAL) 23 % (5-12)
[2023-02-15 08:11] VITALS: PULSE 100; RESP 20; O2SAT 98
[2023-02-15 08:13] VITALS: RESP 20; O2SAT 99
[2023-02-15] MEDS ORDERED: LEVO750T75 PO (08:52)
[2023-02-15] MEDS: DIVALPROEX SPRINKLES 125 MG CAPDR PO SCH (08:56)
[2023-02-15] MEDS: levETIRAcetam 500 MG in NACL 0.9% 100 ML IV SCH (08:56)
[2023-02-15] MEDS: clonazePAM 0.5 MG TAB PO SCH (08:57)
[2023-02-15] MEDS: busPIRone 5 MG TAB PO SCH (08:58)
[2023-02-15 09:23] VITALS: O2SAT 94
[2023-02-15 10:28] VITALS: BP 128/65; PULSE 20; RESP 20; TEMP 97.1
[2023-02-15 10:53] VITALS: BP 125/78; PULSE 65; RESP 20; TEMP 97.1
== END 2023-02-15 14:50 | disposition home or self-care (01) | DRG 392 ==
LOC: MED 13:03 → MMU 18:05 → MTU 18:23
PROVIDERS: ADMIT General Practice; ATTEND General Practice
PROC: 0DJ08ZZ Inspection of Upper Intestinal Tract, Via Natural or Artificial Opening Endoscopic (ICD-10-PCS; principal; 2023-02-13 09:00)
DX: K22.0 Achalasia of cardia (principal); K22.89 Other specified disease of esophagus; R13.10 Dysphagia, unspecified; D72.829 Elevated white blood cell count, unspecified; F79 Unspecified intellectual disabilities; G40.909 Epilepsy, unspecified, not intractable, without status epilepticus; K21.00 Gastro-esophageal reflux disease with esophagitis, without bleeding; K44.9 Diaphragmatic hernia without obstruction or gangrene
CPT/HCPCS: 36415; 70450; 70486; 71045; 71250; 72125; 80048; 83036; 83735; 83880; 84484; 85025; 87081; 92526; 93005; 99285; J1200; J1953; J2060; J2250; J2270; J2405; J3010; J7030; Q0092

== ENCOUNTER 2023-03-12 07:15 | Emergency (ER) | payer OTHER, MEDICAID ==
[~2023-03-12] VITALS: Ht 154.9 cm; Wt 72.6 kg
[~2023-03-12 07:15] MED LIST changes: -BACI-418 TP; +BUS5 PO; -BUSP15TA4 PO; -CEPH250C16 PO; +CLON0.5T PO; +LEVO750T75 PO; +MULT-2253 PO; +QUET200T PO
[2023-03-12 07:35] VITALS: BP 130/62; PULSE 108; RESP 20; TEMP 95.6; O2SAT 97
[2023-03-12] MEDS ORDERED: LORazepam 2 MG/ML VIAL IM ONE (07:55)
== END 2023-03-12 12:13 | disposition home or self-care (01) ==
LOC: MED 07:15
DX: S93.402A Sprain of unspecified ligament of left ankle, initial encounter (principal); J45.909 Unspecified asthma, uncomplicated; Z79.899 Other long term (current) drug therapy; Z79.2 Long term (current) use of antibiotics; Z79.1 Long term (current) use of non-steroidal anti-inflammatories (NSAID); Z86.69 Personal history of other diseases of the nervous system and sense organs; X58.XXXA Exposure to other specified factors, initial encounter; Y92.89 Other specified places as the place of occurrence of the external cause; Y93.89 Activity, other specified; Y99.8 Other external cause status
CPT/HCPCS: 73610; 93971; 96372; 99285; J2060; Q0092

== ENCOUNTER 2024-01-18 20:30 | Emergency (ER) | payer OTHER, MEDICAID ==
[~2024-01-18] VITALS: Ht 160 cm; Wt 99.8 kg
[~2024-01-18 20:30] MED LIST changes: +CLON-1201 PO; -CLON0.5T PO
--- NOTE | 2024-01-18 20:35 | NUR ---
BIBA ALS TO 4
[2024-01-18 20:36] VITALS: BP 115/71; PULSE 122; RESP 20; TEMP 98; O2SAT 90
[2024-01-18 20:43] VITALS: O2SAT 98
--- NOTE | 2024-01-18 20:43 | NUR ---
58YO F BIBPen[facility] FROM [facility] C.O COUGH. PER EMS AND PT FACILITY, PT WAS EATING DINNER AND BEGAN WHEEZING AND HAVING A WET COUGH. PT LAUNDRY OR DRY CLEANERS COUNTER CLERK FROM FACILITY STATES PT WAS NOTED TO HAVE INCREASED WORK OF BREATHING. UPON ARRIVAL TO ED PT SHOWS NO S/S INCREASED WORK OF BREATHING BUT HAS WET COUGH WITH NO PRODUCTION. SPO2 97% ON ROOM AIR. EMS ATTEMPTED TO PROVIDE ORAL AND NASAL SUCTION ON RIG BUT PT REFUSED AND FOUGHT AGAINST EMS TEAM. RT AT BEDSIDE UPON PT ARRIVAL. CALL LIGHT WITHINR EACH. SAFETY MEASURES IN PLACE. DR. IZQUIERDO MADE AWARE OF PT STATUS. NKDA PMHX: AUTISM
--- NOTE | 2024-01-18 21:00 | NUR ---
58 Y/O FEMALE BIBA WITH C/O SOB AND WHEEZING STARTING TODAY. PT NONVERBAL, CAREGIVER AT BEDSIDE. CAREGIVER STATES AFTER EATING DINNER PT APPEARED TO BE HAVING DIFFICULTY BREATHING AND AUDIBLE WHEEZING. CAREGIVER STATES PT IS ON A PUREED DIET. NKA PMHX: AUTISM, SEIZURES
--- NOTE | 2024-01-18 21:00 | NUR ---
WAS CALLED TO ASSESS PT @ 2044, PT ARRIVED SOUNDING CONGESTED, BS WERE ANT/THROUGHOUT/I/E/ COARSE, HR 108, SPO2 99% ON ROOM AIR. NTS WAS DONE WITH A 14 FR SUCTION CATHETER AND SMALL AMOUNT OF CLEAR THICK BLOOD TINGED SECRETIONS WERE REMOVED. NOTIFIED KENO WRITER / RUNNER AND ER DR, ALBUTEROL WAS PRESCRIBED AND GIVEN. PT STILL SOUNDED WET, SO I DECIDED TO DO NTS WITH A 10 FR SUCTION CATHETER AND REMOVED SMALL AMOUNT OF THICK CLEAR/ BLOOD TINGED SECRETIONS. KENO WRITER / RUNNER NOTIFIED .
[2024-01-18 21:06] VITALS: PULSE 112; RESP 16; O2SAT 100
[2024-01-18] MEDS: ALBUTEROL 0.083% 2.5 MG/3 ML NEBU INH ONE (21:06)
[2024-01-18] MEDS ORDERED: DEXT15EL PO (22:48)
[2024-01-18 23:00] VITALS: BP 114/71; PULSE 105; RESP 18; TEMP 97.7; O2SAT 95
--- NOTE | 2024-01-18 23:00 | NUR ---
Patient discharged. Written and verbal after care instructions given and explained. Patient alert, oriented and verbalized understanding of instructions. Wheel Chair Assisted with by caregiver. All questions addressed prior to discharge. Patient advised to follow up with PMD. Rx of tussin given. Patient educated on indication of medication including possible reaction and side effects. Opportunity to ask questions provided and answered.
== END 2024-01-18 23:00 | disposition home or self-care (01) ==
LOC: MED 20:30
DX: J06.9 Acute upper respiratory infection, unspecified (principal); J45.909 Unspecified asthma, uncomplicated; Z86.69 Personal history of other diseases of the nervous system and sense organs; Z79.899 Other long term (current) drug therapy
CPT/HCPCS: 71045; 94640; 99283; J7613